=== PATIENT | male | born 1985 | race Caucasian/White ===

== ENCOUNTER 2022-04-07 19:00 | Emergency (ER) | payer BC, SELFPAY ==
--- NOTE | ~2022-04-07 | CT_ITS ---
EXAMINATION: CT brain wo con DATE: 04/07/2022 21:21 INDICATION: headache . TECHNIQUE: Computed tomography (CT) of the head was performed without intravenous contrast. The mA wa s adjusted according to patient size. Iterative reconstruction technique was employed. The dose-lengt h product was 681.00 mGy-cm. COMPARISON: 10/27/2017 FINDINGS: No acute intracranial hemorrhage or extra-axial fluid collection. No hydrocephalus, mass, or herniation. No acute ischemic infarct. Unremarkable dural venous sinus attenuation. No acute osseous abnormality. The aerated spaces are clear. Remote left mastoidectomy IMPRESSION: No acute intracranial process. Reviewed, dictated and finalized at location K.
--- NOTE | 2022-04-07 19:47 | ED.GENADULT ---
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 He is not currently receiving any of those medications. He is on disability due to needing to sleep 12-16 hours per day. Yesterday, he took one of his methylphenidate pills as he had to drive a child and did not want to fall asleep at the wheel. Over the past 2 days, he has had increasing confusion, feeling tired/weak which is worse than usual, along with not being able to remember events or conversations. He had an episode where he wondered off for some time while outside at his car. At 6:30 p.m. tonight, he has had headache. He did have 1 episode of double vision yesterday with that but that resolved. The headache is not worse with noise, movement, or lights. No neck or back pain. Related Data Home Medications Medication Instructions Recorded Confirmed clobetasol 0.05 % topical cream 1 applic topical DAILY 09/19/19 09/19/19 Allergies Allergy/AdvReac Type Severity Reaction Status Date / Time peanut Allergy Unknown THROAT Verified 04/07/22 20:08 SWELLING tree nut Allergy Unknown THROAT Verified 04/07/22 20:08 SWELLING cefaclor AdvReac Unknown Unknown Verified 04/07/22 20:08 codeine AdvReac Unknown Unknown Verified 04/07/22 20:08 Review of Systems Review of Systems: All systems reviewed & are unremarkable except as noted in HPI and below Constitutional: Constitutional: Reports no additional constitutional complaints, Denies anorexia, Denies body ache(s), Denies chills, Denies excessive sweating, Reports fatigue, Denies fever(s), Denies frequent falls, Reports headache(s), Reports malaise and Denies poor appetite Eyes: Eyes: Reports no additional eye complaints, Denies blurry vision, Reports change in vision (diplopia transient yesterday), Denies irritation, Denies itchy eyes and Denies photophobia ENT: Reports system reviewed and no additional complaints, except as documented, Reports Normal hearing present, Denies change in voice, Denies dysphagia, Denies vertigo, Reports dizziness, Denies ear discharge, Reports headache(s), Denies hearing loss, Denies hoarseness, Denies nasal congestion, Denies neck pain, Denies sinus pressure, Denies sore throat and Denies throat swelling Cardiovascular: Cardiovascular: Reports no additional cardiovascular complaints, Denies chest pain, Denies syncope, Denies rapid heart rate, Denies irregular heart rhythm, Denies leg edema, Denies dyspnea and Denies slow heart rate Respiratory: Respiratory: Reports no additional respiratory complaints, Denies cough, Denies dyspnea, Denies stridor and Denies wheezing Gastrointestinal: Gastrointestinal: Reports no additional gastrointestinal complaints, Denies abdominal pain, Denies melena, Denies hematochezia, Denies dysphagia, Denies diarrhea, Denies nausea and Denies vomiting Genitourinary: Genitourinary: Denies hematuria, Denies oliguria, Denies dysuria, Denies flank pain, Denies urinary frequency and Denies urinary urgency Musculoskeletal: Musculoskeletal: Reports no additional musculoskeletal complaints, Denies abnormal gait, Denies back pain, Denies myalgias, Denies arthralgias, Denies joint swelling, Denies limited range of motion, Denies muscle cramps, Denies muscle weakness, Denies neck pain and Denies numbness Integumentary/Breasts: Skin/Breast: Reports system reviewed and no additional complaints, except as docu, Denies breast pain, Denies change in pigmentation, Denies pruritus, Denies erythema and Denies wounds Neurologic: Reports system reviewed and no additional complaints, except as documented, Reports Normal hearing present, Denies Abnormal speech pre
[2022-04-07 20:03] VITALS: BP 126/92; PULSE 94; RESP 18; TEMP 36.6; O2SAT 96
[2022-04-07 21:55] LABS: Basophils Absolute Auto 0.07 K/mm3 (0.00-0.10); Basophils Percent Auto 0.8 % (0.0-1.0); Eosinophils Absolute Auto 0.66 K/mm3 (0.02-0.50); Eosinophils Percent Auto 7.4 % (1.0-6.0); Hematocrit 48.9 % (40.0-54.0); Hemoglobin 16.2 g/dL (14.0-18.0); Immature Granulocyte Absolute 0.03 K/mm3 (0.00-0.00); Immature Granulocyte Percent A 0.3 % (0.0-0.0); Lymphocytes Absolute Auto 2.36 K/mm3 (1.10-4.50); Lymphocytes Percent Auto 26.6 % (18.0-42.0); Mean Corpuscular HGB Conc 33.1 g/dL (32.0-36.0); Mean Corpuscular Hemoglobin 30.6 pg (27.0-31.0); Mean Corpuscular Volume 92.4 fL (78.0-102.0); Mean Platelet Volume 9.6 fl (8.7-11.0); Monocytes Absolute Auto 0.85 K/mm3 (0.10-0.90); Monocytes Percent Auto 9.6 % (2.0-11.0); Neutrophils Absolute Auto 4.9 K/mm3 (1.7-7.2); Neutrophils Percent Auto 55.3 % (50.0-70.0); Platelet Count Result 272 K/mm3 (150-420); Red Blood Count 5.29 M/mm3 (4.70-6.10); Red Cell Distribution Width 13.1 % (11.6-14.4); White Blood Count 8.9 K/mm3 (4.8-10.8)
[2022-04-07] MEDS: SODIUM CHLORIDE 0.9% IV 1,000 ML 999 ML IV CONT (21:58)
[2022-04-07] MEDS: KETOROLAC 30 MG/ML VIAL (*BKC) IV PUSH (21:58)
[2022-04-07 22:00] VITALS: BP 131/92; PULSE 72; RESP 16; O2SAT 96
[2022-04-07 22:10] LABS: Add Urine Microscopic? NO; Appearance Urine Clear (Clear); Bilirubin Urine Negative (Negative); Blood Urine Negative (Negative); Color Urine Yellow (Yellow); Glucose Urine UA Negative (Negative); Ketones Urine Negative (Negative); Leukocyte Esterase Ur Negative LEU/UL (Negative); Nitrate Urine Negative (Negative); Protein Urine Negative (Negative); Specific Grav Ur 1.015 (1.010-1.020); Urobilinogen Urine 0.2 mg/dL (0.2-1.0); pH Urine 6.5 (5.0-8.0)
[2022-04-07 22:17] LABS: Amphetamine Screen Urine Negative (Negative); Barbiturate Screen Urine Negative (Negative); Benzodiazepines Screen Urine Positive (Negative); Cannabinoid Screen Urine Positive (Negative); Cocaine Screen Urine Negative (Negative); Methadone Screen Urine Negative (Negative); Opiate Screen Urine Negative (Negative); Phencyclidine Screen Urine Negative (Negative)
[2022-04-07 22:20] LABS: Free T3 3.11 pg/mL (2.18-3.98)
[2022-04-07 22:39] LABS: Alanine Aminotransferase 152 U/L (16-63); Albumin Level 4.2 g/dL (3.4-5.0); Alkaline Phosphatase 54 U/L (46-116); Anion Gap 10 mmol/L (8-16); Aspartate Amino Transferase 81 U/L (15-37); Bilirubin,Total 0.6 mg/dL (0.00-1.00); Blood Urea Nitrogen 12 mg/dL (7-18); Calcium 9.1 mg/dL (8.5-10.1); Carbon Dioxide 30 mmol/L (21-32); Chloride 102 mmol/L (98-108); Estimated Glomerular Filt Rate > 60; Glucose 77 mg/dL (70-99); Magnesium 2.5 mg/dL (1.8-2.4); Osmolality Calculated 292 mOsm/kg (285-295); Potassium 3.8 mmol/L (3.5-5.1); Salicylate 0.5 mg/dL (2.8-20.0); Sodium 142 mmol/L (136-145); Thyroid Stimulating Hormone 0.86 uIU/mL (0.36-3.74); Total Protein 7.9 g/dL (6.4-8.2)
[2022-04-07 22:44] LABS: Acetaminophen < 2 ug/mL (10-30); Ethanol < 3 mg/dL (0-6)
[2022-04-07 23:05] VITALS: BP 137/82; BP 149/84; BP 150/84
== END 2022-04-07 23:21 | disposition home or self-care (01) ==
PROVIDERS: Emergency Provider Emergency Medicine; PCP Family Medicine
DX: R51.9 Headache, unspecified (principal); G47.419 Narcolepsy without cataplexy; R41.0 Disorientation, unspecified
CPT/HCPCS: 36415; 70450; 80053; 80307; 81003; 83735; 84439; 84443; 84481; 85025; 96361; 96374; 99284; J1885; J7030

== ENCOUNTER 2022-06-22 15:57 | Emergency (ER) | payer BC, SELFPAY ==
[2022-06-22 16:00] VITALS: BP 132/91; PULSE 93; RESP 20; TEMP 36.6; O2SAT 97
[2022-06-22] MEDS: diphenhydrAMINE HCl INJ 50 MG/ML VIAL IV PUSH (16:36)
[2022-06-22] MEDS: LORATADINE 10 MG TABLET PO (16:36)
[2022-06-22] MEDS: methylPREDNISolone SOD SUCC 125 MG VIAL IV PUSH (16:38)
--- NOTE | 2022-06-22 17:07 | ED.GENADULT ---
HPI - General Adult General Chief complaint: Allergic Reaction Stated complaint: allergic reaction; eyes swollen; itchiness Time Seen by Provider: 06/22/22 16:17 History of Present Illness HPI narrative: 36-year-old male who was working in his house, picking up some dust the items were by he rubbed his face with his hands, resulting in swelling of the right and left periorbital regions, worse on the right, with itching and tearing. He also scratched his right side of his neck and this has resulted in hives. He does have history of eosinophilic esophagitis and atopic dermatitis with multiple allergies as well as asthma. No dyspnea. No swelling of the tongue or throat. No other areas of swelling besides the periorbital regions and the right aspect of his neck. Related Data Home Medications Medication Instructions Recorded Confirmed clobetasol 0.05 % topical cream 1 applic topical DAILY 09/19/19 06/22/22 Allergies Allergy/AdvReac Type Severity Reaction Status Date / Time peanut Allergy Unknown THROAT Verified 04/07/22 20:08 SWELLING tree nut Allergy Unknown THROAT Verified 04/07/22 20:08 SWELLING cefaclor AdvReac Unknown Unknown Verified 04/07/22 20:08 codeine AdvReac Unknown Unknown Verified 04/07/22 20:08 Review of Systems Review of Systems: All systems reviewed & are unremarkable except as noted in HPI and below Constitutional: Constitutional: Reports no additional constitutional complaints, Denies anorexia, Denies body ache(s), Denies chills, Denies excessive sweating, Denies fatigue, Denies fever(s), Denies frequent falls, Denies headache(s), Denies malaise and Denies poor appetite Eyes: Eyes: Reports no additional eye complaints, Denies blurry vision, Denies change in vision, Reports irritation, Reports itchy eyes and Reports photophobia Comments: Periorbital edema bilaterally, worse on the right. ENT: Reports system reviewed and no additional complaints, except as documented, Reports Normal hearing present, Denies change in voice, Denies dysphagia, Denies vertigo, Denies dizziness, Denies ear discharge, Denies headache(s), Denies hearing loss, Denies hoarseness, Denies nasal congestion, Denies neck pain, Denies sinus pressure, Denies sore throat and Denies throat swelling Cardiovascular: Cardiovascular: Reports no additional cardiovascular complaints, Denies chest pain, Denies syncope, Denies rapid heart rate, Denies irregular heart rhythm, Denies leg edema, Denies dyspnea and Denies slow heart rate Respiratory: Respiratory: Reports no additional respiratory complaints, Denies cough, Denies dyspnea, Denies stridor and Denies wheezing Gastrointestinal: Gastrointestinal: Reports no additional gastrointestinal complaints, Denies abdominal pain, Denies melena, Denies hematochezia, Denies dysphagia, Denies diarrhea, Denies nausea and Denies vomiting Genitourinary: Genitourinary: Denies hematuria, Denies oliguria, Denies dysuria, Denies flank pain, Denies urinary frequency and Denies urinary urgency Musculoskeletal: Musculoskeletal: Reports no additional musculoskeletal complaints, Denies abnormal gait, Denies back pain, Denies myalgias, Denies arthralgias, Denies joint swelling, Denies limited range of motion, Denies muscle cramps, Denies muscle weakness, Denies neck pain and Denies numbness Integumentary/Breasts: Skin/Breast: Reports system reviewed and no additional complaints, except as docu, Denies breast pain, Denies change in pigmentation, Denies pruritus, Denies erythema and Denies wounds Neurologic: Reports system reviewed and no additional complaints, except as documented, Reports Normal hearing present, Denies Abnormal speech present, Denies abnormal gait, Denies confusion, Denies vertigo, Denies dizziness, Denies syncope, Denies frequent falls, Denies headache(s), Denies focal weakness, Denies numbness and Denies paresthesias Psychiatric: Psychiatric: Reports no additional psychiatric complaints and Denies
--- NOTE | 2022-06-22 17:18 | PC.NURSE ---
noted redness to forehead has decreased and swelling to face has decreased. pt states feeling better. dr danielson updated.
[2022-06-22 17:59] VITALS: BP 112/77; PULSE 73; RESP 20; TEMP 36.6; O2SAT 97
== END 2022-06-22 18:09 | disposition home or self-care (01) ==
PROVIDERS: Emergency Provider Emergency Medicine; PCP Family Medicine
DX: T78.40XA Allergy, unspecified, initial encounter (principal); L30.9 Dermatitis, unspecified; H10.9 Unspecified conjunctivitis
CPT/HCPCS: 96374; 96375; 99284; A9270; J1200; J2930

== ENCOUNTER 2024-05-18 12:17 | Outpatient (CLI) | payer OTHER, SELFPAY ==
--- NOTE | 2024-05-18 14:15 | NEURO_ITS ---
Impression: # Complains of tingling in neck and shoulder area. # Normal Nerve Conduction Study. # Normal needle/EMG exam. # Clinical correlation recommended; Would benefit from MRI of C-spine. Nerve Conduction Studies Anti Sensory Summary Table Stim Site NR Peak (ms) P-T Amp (?V) Site1 Site2 Delta-P (ms) Dist (cm) Kyaw (m/s) Left Median Anti Sensory (2-3nd Digit) Wrist 2.7 64.3 Wrist 2-3nd Digit 2.7 14.0 52 Wrist 2.6 75.5 Wrist 2-3nd Digit 2.7 14.0 52 Right Median Anti Sensory (2-3nd Digit) Wrist 2.6 67.2 Wrist 2-3nd Digit 2.6 14.0 54 Wrist 2.6 77.0 Wrist 2-3nd Digit 2.6 14.0 54 Left Radial Anti Sensory (Base 1st Digit) Wrist 2.1 24.6 Wrist Base 1st Digit 2.1 0.0 Right Radial Anti Sensory (Base 1st Digit) Wrist 2.1 27.6 Wrist Base 1st Digit 2.1 0.0 Left Ulnar Anti Sensory (5th Digit) Wrist 2.4 66.9 Wrist 5th Digit 2.4 14.0 58 Right Ulnar Anti Sensory (5th Digit) Wrist 2.3 72.9 Wrist 5th Digit 2.3 14.0 61 Motor Summary Table Stim Site NR Onset (ms) O-P Amp (mV) Site1 Site2 Delta-0 (ms) Dist (cm) Kyaw (m/s) Left Median Motor (Abd Poll Brev) Wrist 2.4 4.4 Elbow Wrist 4.9 29.0 59 Elbow 7.3 4.2 Right Median Motor (Abd Poll Brev) Wrist 2.9 2.2 Elbow Wrist 4.8 29.0 60 Elbow 7.7 3.6 Left Ulnar Motor (Abd Dig Minimi) Wrist 2.3 7.4 A Elbow Wrist 5.0 30.0 60 A Elbow 7.3 6.7 Right Ulnar Motor (Abd Dig Minimi) Wrist 2.0 7.8 A Elbow Wrist 5.1 30.0 59 A Elbow 7.1 7.6 F Wave Studies NR F-Lat (ms) L-R F-Lat (ms) Left Median (Mrkrs) (Abd Poll Brev) 26.88 0.29 Right Median (Mrkrs) (Abd Poll Brev) 27.17 0.29 Left Ulnar (Mrkrs) (Abd Dig Min) 27.79 0.68 Right Ulnar (Mrkrs) (Abd Dig Min) 27.11 0.68 EMG Side Muscle Nerve Root Ins Act Fibs Amp Dur Recrt Comment Right 1stDorInt Ulnar C8-T1 Nml Nml Nml Nml Nml Right Ext Indicis Radial (Post Int) C7-8 Nml Nml Nml Nml Nml Right Ext Digitorum Radial (Post Int) C7-8 Nml Nml Nml Nml Nml Right BrachioRad Radial C5-6 Nml Nml Nml Nml Nml Right PronatorTeres Median C6-7 Nml Nml Nml Nml Nml Right Abd Poll Brev Median C8-T1 Nml Nml Nml Nml Nml Right ABD Dig Min Ulnar C8-T1 Nml Nml Nml Nml Nml Left 1stDorInt Ulnar C8-T1 Nml Nml Nml Nml Nml Left Ext Indicis Radial (Post Int) C7-8 Nml Nml Nml Nml Nml Left Ext Digitorum Radial (Post Int) C7-8 Nml Nml Nml Nml Nml Left BrachioRad Radial C5-6 Nml Nml Nml Nml Nml Left PronatorTeres Median C6-7 Nml Nml Nml Nml Nml Left Abd Poll Brev Median C8-T1 Nml Nml Nml Nml Nml Left ABD Dig Min Ulnar C8-T1 Nml Nml Nml Nml Nml MTDD
== END 2024-05-18 12:18 | disposition home or self-care (01) ==
LOC: ANHNEURO 12:19
PROVIDERS: PCP Family Medicine; Visit Provider Student in an Organized Health Care Education/Training Program
DX: M54.12 Radiculopathy, cervical region (principal); R20.2 Paresthesia of skin
CPT/HCPCS: 95886; 95911

== ENCOUNTER 2024-08-22 19:33 | Emergency (ER) | payer OTHER, SELFPAY ==
[2024-08-22 19:36] VITALS: BP 142/87; PULSE 85; RESP 20; TEMP 36.7; O2SAT 100
--- NOTE | 2024-08-22 19:41 | ECG_ITS ---
Test Date: 2024-08-22 19:45:16 Measurements Intervals [place] Rate: 78 P: 35 MN: 140 QRS: 4 QRSD: 113 T: 26 QT: 355 QTc: 405 Interpretive Statements SINUS RHYTHM INCOMPLETE RIGHT BUNDLE BRANCH BLOCK [90+ ms QRS DURATION, TERMINAL R IN V1/V2, 40+ ms S IN I/aVL/V4/V5/V6] No previous ECG available for comparison Electronically Signed On 08-22-2024 21:04:41 [employer] by Livia Barry M.D.
[2024-08-22 19:57] LABS: Basophils Absolute Auto 0.1 K/mm3 (0.0-0.1); Basophils Percent Auto 0.6 % (0.2-1.2); Eosinophils Absolute Auto 0.2 K/mm3 (0-0.3); Eosinophils Percent Auto 2.2 % (0-4.4); Hematocrit 45.9 % (42.0-52.0); Hemoglobin 15.8 g/dL (14.0-18.0); Immature Granulocyte Absolute 0.03 K/mm3 (0.00-0.031); Immature Granulocyte Percent A 0.3 % (0-0.5); Lymphocytes Absolute Auto 2.51 K/mm3 (0.9-3.2); Lymphocytes Percent Auto 25.8 % (18.3-44.2); Mean Corpuscular HGB Conc 34.4 g/dl (32-36); Mean Platelet Volume 9.5 fl (7.4-10.4); Monocytes Absolute Auto 0.8 K/mm3 (0.1-0.6); Monocytes Percent Auto 7.9 % (2.6-8.5); Neutrophils Absolute Auto 6.2 K/mm3 (1.3-6.7); Neutrophils Percent Auto 63.2 % (45.5-73.1); Platelet Count Result 280 k/mm3 (150-375); Red Cell Distribution Width 12.5 % (11.5-14.5); White Blood Count 9.7 K/mm3 (4.5-10.0)
[2024-08-22 20:05] LABS: Alanine Aminotransferase 37 U/L (6-50); Albumin Level 4.8 g/dL (3.5-5.1); Alkaline Phosphatase 64 U/L (38-126); Anion Gap 8 mmol/L (4-12); Aspartate Amino Transferase 28 U/L (17-59); Bilirubin,Total 0.6 mg/dL (0.2-1.3); Blood Urea Nitrogen 11 mg/dL (9-20); Calcium 9.5 mg/dL (8.4-10.2); Carbon Dioxide 27 mmol/L (22-30); Chloride 105 mmol/L (98-107); Estimated CRCL calculation 86 ml/min; Estimated Glomerular Filt Rate > 60; Glucose 95 mg/dL (65-110); Potassium 4.1 mmol/L (3.4-5.0); Sodium 140 mmol/L (137-145)
[2024-08-22 20:13] LABS: Acetaminophen < 10 ug/mL (10-30); Ethanol < 10 mg/dL (<10); Salicylate 3.8 mg/dL (2-20)
[2024-08-22 20:15] LABS: Amphetamine Screen Urine Negative (Negative); Barbiturate Screen Urine Negative (Negative); Benzodiazepines Screen Urine Negative (Negative); Cannabinoid Screen Urine Positive (Negative); Cocaine Screen Urine Negative (Negative); Methadone Screen Urine Negative (Negative); Opiate Screen Urine Negative (Negative); Phencyclidine Screen Urine Negative (Negative)
[2024-08-22 20:20] LABS: Add Urine Microscopic? YES; Appearance Urine Clear (Clear); Bacteria Urine None Seen /hpf; Bilirubin Urine Negative (Negative); Blood Urine Negative (Negative); Color Urine Yellow (Yellow); Glucose Urine UA Negative (Negative); Ketones Urine Negative (Negative); Leukocyte Esterase Ur Negative LEU/UL (Negative); Nitrate Urine Negative (Negative); Non Pathogenic Casts 0-2; Protein Urine Trace mg/dL (Negative); RBC Urine 0-2 /hpf (0-2); Specific Grav Ur 1.026 (1.001-1.035); Squamous Epithelial Cell Urine None Seen /hpf (Few); Urobilinogen Urine 0.2 mg/dL (<2.0); WBC Urine 0-5 /hpf (0-3)
[2024-08-22 20:33] LABS: SARS-CoV-2 RNA PCR Negative (Negative)
[2024-08-22 21:00] LABS: Creatine Kinase 31 U/L (55-170)
[2024-08-22 21:06] VITALS: O2SAT 100
--- NOTE | 2024-08-22 21:25 | ED_ITS ---
HPI - General Adult General Chief complaint: Overdose Stated complaint: serotinin poisioning Time Seen by Provider: 08/22/24 20:26 History of Present Illness HPI narrative: Patient is a 38-year-old male who presents to the emergency department this evening due to concern for serotonin syndrome. Patient states that he has been on BuSpar 40 mg for many years and recently his PCP started him on trazodone and he believes that the PCP did tell him to stop taking the BuSpar. Patient states that he has been on the trazodone for 4 days and for got stop taking the BuSpar. He is complaining of multiple vague symptoms including weakness, palpitations, nausea, vomiting and diarrhea and is concerned that this could be signs of serotonin syndrome. Patient is also aware that starting the trazodone could also have side effects and is unsure if the symptoms he is feeling are from a viral syndrome, trazodone or serotonin syndrome. He is alert and oriented to person, place, time and situation and answering all of my questions appropriately. No additional symptoms or concerns at this time. Related Data Allergies Allergy/AdvReac Type Severity Reaction Status Date / Time peanut Allergy Unknown THROAT Verified 07/26/24 15:30 SWELLING tree nut Allergy Unknown THROAT Verified 07/26/24 15:30 SWELLING cefaclor AdvReac Unknown Unknown Verified 07/26/24 15:30 Review of Systems 2 Review of Systems: All systems are reviewed and are negative unless stated otherwise in the HPI. FORMERLY [facility], [facility] Past Medical History Medical History Right kidney stone Eosinophilic esophagitis Food allergy, peanut Allergic rhinitis Anxiety Gastroesophageal reflux disease Hypersomnolence Mild intermittent asthma without complication Recurrent major depressive disorder, in partial remission Family History Family History Other Diabetes mellitus Family history of allergic disorder Family history of arthritis Hypertension Social History Social History Smoking status: Never smoker Second hand tobacco smoke exposure: No Alcohol intake: current Alcohol use details: seldom; socially Substance use: current Substance use type: marijuana Exam 2 Narrative: General: Alert, awake, afebrile, in no acute distress. HEENT: PERRL, no rhinorrhea, no post nasal drip, oropharynx clear. Neck: Trachea midline, no JVD, no lymphadenopathy. Cardiovascular: Regular rate and rhythm, no murmurs, rubs or gallops, no peripheral edema. Respiratory: Clear to auscultation bilaterally, no tachypnea, no wheezing, no rhonchi, no rubs, no respiratory distress. Abdomen: Soft, nontender, nondistended, no rebound, no guarding, no peritoneal signs. Musculoskeletal: No joint swelling or deformity, normal muscle tone, compartments are all soft, no muscle rigidity, no clonus. Skin: No rashes or petechia, no signs of infection. Psychiatric: Alert and oriented, normal behavior and judgment for situation. Neurological: Alert and oriented to person, place, and time. Follows all commands. No focal deficits, speech is clear and fluent. Course Vital Signs Vital signs: Vital Signs Temperature 98.1 F 08/22/24 19:36 Pulse Rate 85 08/22/24 19:36 Respiratory Rate 20 08/22/24 19:36 Blood Pressure 142/87 H 08/22/24 19:36 Pulse Oximetry 100 08/22/24 19:36 Temperature 98.1 F 08/22/24 19:36 Pulse Rate 85 08/22/24 19:36 Respiratory Rate 20 08/22/24 19:36 Blood Pressure 142/87 H 08/22/24 19:36 Pulse Oximetry 100 08/22/24 19:36 Medical Decision Making MDM Narrative Medical decision making narrative: The patient was evaluated by myself in the emergency department. History is obtained from patient who is an independent historian and physical exam was performed. External medical records were reviewed at this time. IV was established and pertinent tests were ordered. EKG was obtained which revealed sinus rhythm rate of 70 beats per minute. No ST changes, T wave inversions or evidence of acute ischemia. EKG was independently interpreted by me and is currently pending official cardiology read. Laboratory results obtained revealing no acute process. Urinalysis unremarkable. Urine drug screen positive for cannabinoids. Differential diagnosis considerations include Serotonin syndrome, acute viral syndrome, medication side effect, infection process. Comorbidities impacting this visit include multiple SSRI use. I have evaluated and discussed social determinants of health with the patient that could potentially impact subsequent diagnosis and treatment plans. On repeat assessment of the patient, reevaluation revealed that the patient is doing well and is in no acute distress. Patient symptoms have Remained stable since he arrived to our emergency department. Repeat vital signs were all reviewed and noted to be stable. Differential diagnosis and treatment plan were discussed with the patient at bedside. Patient agrees with discussion and after shared medical decision making agrees with discharge. All questions were answered to the patient's satisfaction. Patient will follow up with his PCP in 3-5 days. He was informed that his symptoms are likely due to a side effect of starting the trazodone or a viral syndrome, my suspicion for serotonin syndrome is very low given his normal vital signs and normal examination. Instructed to call his doctor 1st thing tomorrow to find out if he was supposed to stop taking the abuse bar and patient is agreeable with this plan. Patient was provided with strict return precautions and instructed to return to the emergency department if any new or worsening symptoms develop. The patient was discharged in stable condition. Vital Signs Vital Signs: Vital Signs Temperature 98.1 F 08/22/24 19:36 Pulse Rate 85 08/22/24 19:36 Respiratory Rate 20 08/22/24 19:36 Blood Pressure 142/87 H 08/22/24 19:36 Pulse Oximetry 100 08/22/24 19:36 Temperature 98.1 F 08/22/24 19:36 Pulse Rate 85 08/22/24 19:36 Respiratory Rate 20 08/22/24 19:36 Blood Pressure 142/87 H 08/22/24 19:36 Pulse Oximetry 100 08/22/24 19:36 Lab Data 08/22/24 19:46 08/22/24 19:46 Labs: Lab Results 08/22/24 08/22/24 Range/Units 19:46 19:51 WBC 9.7 (4.5-10.0) K/mm3 RBC 5.10 (4.6-6.20) M/mm3 Hgb 15.8 (14.0-18.0) g/dL Hct 45.9 (42.0-52.0) % MCV 90.0 (80-100) fl MCH 31.0 (26-34) pg MCHC 34.4 (32-36) g/dl RDW 12.5 (11.5-14.5) % Plt Count 280 (150-375) k/mm3 MPV 9.5 (7.4-10.4) fl Immature Gran % (Auto) 0.3 (0-0.5) % Neut % (Auto) 63.2 (45.5-73.1) % Lymph % (Auto) 25.8 (18.3-44.2) % Wallace % (Auto) 7.9 (2.6-8.5) % Eos % (Auto) 2.2 (0-4.4) % Baso % (Auto) 0.6 (0.2-1.2) % Lymph # (Auto) 2.51 (0.9-3.2) K/mm3 Wallace # (Auto) 0.8 H (0.1-0.6) K/mm3 Eos # (Auto) 0.2 (0-0.3) K/mm3 Baso # (Auto) 0.1 (0.0-0.1) K/mm3 Abs Immat Gran (auto) 0.03 (0.00-0.031) K/mm3 Absolute Neuts (auto) 6.2 (1.3-6.7) K/mm3 Absolute Nucleated RBC 0.000 (0.0-0.012) K/mm3 Nucleated RBC % 0.0 (0.0-0.2) % Sodium 140 (137-145) mmol/L Potassium 4.1 (3.4-5.0) mmol/L Chloride 105 (98-107) mmol/L Carbon Dioxide 27 (22-30) mmol/L Anion Gap 8 (4-12) mmol/L BUN 11 (9-20) mg/dL Creatinine 1.20 (0.7-1.3) mg/dL Estim Creat Clear Calc 86 ml/min Estimated GFR > 60 (59 - ) Glucose 95 (65-110) mg/dL Calcium 9.5 (8.4-10.2) mg/dL Total Bilirubin 0.6 (0.2-1.3) mg/dL AST 28 (17-59) U/L ALT 37 (6-50) U/L Alkaline Phosphatase 64 (38-126) U/L Total Creatine Kinase 31 L (55-170) U/L Total Protein 8.0 (6.3-8.2) g/dL Albumin 4.8 (3.5-5.1) g/dL TSH 3.310 (0.465-4.680) uIU/mL Urine Color Yellow (Yellow) Urine Appearance Clear (Clear) Urine pH 7.0 (5.0-9.0) Ur Specific [place] 1.026 (1.001-1.035) Urine Protein Trace (Negative) mg/dL Urine Glucose (UA) Negative (Negative) mg/dL Urine Ketones Negative (Negative) mg/dL Ur Blood (Man) Negative (Negative) Urine Nitrate Negative (Negative) Urine Bilirubin Negative (Negative) Urine Urobilinogen 0.2 (<2.0) mg/dL Leukocyte Esterase Rfl Negative (Negative) DANIELLE/UL Urine RBC 0-2 (0-2) /hpf Urine WBC 0-5 (0-3) /hpf Ur Squamous Epith Cells None seen (Few) /hpf Urine Bacteria None seen /hpf Urine Casts 0-2 Salicylates 3.8 (2-20) mg/dL Urine Opiates Screen Negative (Negative) Urine Methadone Screen Negative (Negative) Acetaminophen < 10 L (10-30) ug/mL Ur Barbiturates Screen Negative (Negative) Ur Phencyclidine Scrn Negative (Negative) Ur Amphetamine Screen Negative (Negative) U Benzodiazepines Scrn Negative (Negative) Urine Cocaine Screen Negative (Negative) U Cannabinoids Screen Positive A (Negative) Ethyl Alcohol < 10 (<10) mg/dL SARS-CoV-2 RNA (RT-PCR) Negative (Negative) Discharge Plan Discharge Clinical Impression: Medication side effect Patient Disposition: Home, Self-Care Condition: Improved Instructions: Antibiotic Form Additional Instructions: Please follow-up with your family doctor within the next 3-5 days. Return to the emergency department if any new or worsening symptoms develop. Patient Language: Romanian Prescriptions: No Action loratadine [Claritin] 10 mg tablet 10 mg PO DAILY Qty: 7 0RF diphenhydramine HCl [Benadryl Allergy] 25 mg tablet 25 mg PO TID PRN (Reason: allergic reaction) Qty: 20 0RF ondansetron 4 mg tablet,disintegrating 4 mg PO Q8H PRN (Reason: nausea and vomiting) Qty: 10 0RF baclofen 10 mg tablet 10 mg PO DAILY PRN (Reason: muscle spasm) Qty: 30 0RF epinephrine [EpiPen 2-Toro] 0.3 mg/0.3 mL auto-injector 0.3 mg IM ONCE Qty: 6 3RF Rx Instructions: as a single dose bupropion HCl 150 mg tablet extended release 24 hr See Rx Instructions .ROUTE .COMPLEX Qty: 90 4RF Dose Instruction: TAKE 1 TABLET DAILY Rx Instructions: TAKE 1 TABLET DAILY buspirone 5 mg tablet See Rx Instructions .ROUTE .COMPLEX Qty: 360 3RF Dose Instruction: TAKE 1 TO 2 TABLETS TWICE A DAY NEEDED Rx Instructions: TAKE 1 TO 2 TABLETS TWICE A DAY NEEDED metoprolol succinate 25 mg tablet extended release 24 hr 25 mg PO DAILY Qty: 90 1RF fluticasone propion-salmeterol [Advair Diskus] 250-50 mcg/dose blister with device 1 inh INHALATION BID Qty: 60 9RF clobetasol 0.05 % ointment 1 applic topical BID Qty: 60 2RF armodafinil [Nuvigil] 250 mg tablet 250 mg PO QAM Qty: 90 1RF pantoprazole 40 mg tablet,delayed release (DR/EC) 40 mg PO QAM Qty: 90 3RF albuterol sulfate 90 mcg/actuation HFA aerosol inhaler 1 inh inhalation Q4H PRN (Reason: shortness of breath or wheezing) Qty: 8.5 6RF Follow-up/Referrals: Monica Marshall MD [Primary Care Provider] - 3 Days Time of Disposition: 21:37
[2024-08-22 21:57] VITALS: RESP 15
[2024-08-22 21:58] VITALS: BP 132/86; PULSE 66; RESP 15; O2SAT 100
== END 2024-08-22 22:00 | disposition home or self-care (01) ==
PROVIDERS: Emergency Provider Emergency Medicine; PCP Family Medicine
DX: R11.2 Nausea with vomiting, unspecified (principal); T43.215A Adverse effect of selective serotonin and norepinephrine reuptake inhibitors, initial encounter; Z20.822 Contact with and (suspected) exposure to COVID-19; Z87.442 Personal history of urinary calculi; Z91.010 Allergy to peanuts; F41.9 Anxiety disorder, unspecified; K21.9 Gastro-esophageal reflux disease without esophagitis; J45.909 Unspecified asthma, uncomplicated; F32.A Depression, unspecified; I45.10 Unspecified right bundle-branch block
CPT/HCPCS: 36415; 80053; 80143; 80179; 80307; 81001; 82077; 82550; 84443; 85025; 87635; 93005; 99283

== ENCOUNTER 2025-01-31 13:31 | Outpatient (CLI) | payer MEDICARE, SELFPAY ==
--- OUTSIDE RECORDS SUMMARY | 2025-01-31 13:48 | XMS_ITS | Patient Health Record ---
Author Organization [facility] Address [address] [place] [address] Care Team Providers Care Laborer Plumbing Name Role Phone Monica Marshall MD Primary Care Provider Unavailabl e Allergies Allergen (clinical drug ingredient) Drug/Non Drug Allergy documented on EMR Reaction Allergy Type Onset Date Status cefaclor Cefaclor Unknown Drug Allergy Active Codeine Phosphate Unknown Drug Allergy Active Reason For Referral No Information Medications Medication SIG (Take, Route, Frequency, Duration) Notes Start Date End Date Status Wellbutrin XL Active Methylphenidate Acti ve Metoprolol Succinate Active Advair HFA Active Pantoprazole Sodium 40 MG 1 tablet Orall y Once a day for 30 day(s) Active Dexilant 60 MG 1 capsule Orally Onc e a day for 30 day(s) 07/19/2021 Active Xyrem Active Albuterol Active Armodafinil Active Fluticasone Furoate 200 MCG/ACT 1 puff Swallowed not inhaled BID for 30 days 03/02/2021 Active Social History Tobacco Use: Social History Observation Description Date Details (start date - stop date) Never Smoker NA - NA Tobacco Use/Smoking Question Answer Notes Are you a nonsmoker Problems Problem Type SNOMED Code ICD Code Onset Dates Problem Status W/U Status Risk Notes Problem 826547812 Eosinophilic esophagitis (K20.0) Active confirmed He is somewhat improved with the addition swallowed steroids. I am changing his protonix to dexilant today. I gave him a month of samples. He can continue to swallow the advair he takes for his asthma. May need to add budesonide in the future Problem 435859821 GERD (gastroesophage al reflux disease) (K21.9) Active confirmed Will monitor symptoms with change to dexilant. Problem [id number] Dysphagia (R13.10) Active confirmed My suspicion is that he may have underlying EOE. Other possibilities include stricture vs. anatomic abnormality vs. motility disorder. He agreed to proceed with EGD and dilation (if necessary). Plan Of Treatment Pending Test Test Name Order Date Upper Endoscopy 02/22/2021 Insurance Providers Payer Name Payer Address Payer Phone Subscriber Number Group Number Insured Name Patient Relationship to Insured Coverage Start Date Coverage End Date [employer] PPO E2 [address] [place] [address] [id number] Ezra Hooker Self - patient is the insured Medical (General) History Medical History History ICD Code GERD Asthma Depression Sleep Apnea Narcolepsy Surgical History Surgery Date(Month/Year) Endoscopy 01/2021 Cholecystectomy Throat Surgery x2 Ear Surgery x3 Hospitalization History Reason Date(Month/Year) Panic Attack
--- OUTSIDE RECORDS SUMMARY | 2025-01-31 13:48 | XMS_ITS | Referral Summary ---
Author Organization [facility] Healthcare Address [address] [place] [address] Care Team Providers Care Metal Moulder'S Assistant Name Role Phone Monica Marshall MD Primary Care Provider [phone] Monica Marshall MD Unavailable [phone] Tip Giraldo MD Unavailable [phone] Francisco Sanchez MD Unavailable [phone] Encounters Date Type Department Care Team Description 01/11/[address] [facility] Neuro Sleep [address] [place] [address] Bobbi Salgado, RN [facility] patient assistance 01/10/[address] [facility] Neuro Sleep [address] [place] [address] Bobbi Salgado, MARI 01/07/[address] [facility] Neuro Sleep [address] [place] [address] Bobbi Salgado, RN 01/07/[address] [facility] General Neurology [address] [place] [phone] Brennan Mckenna MD Modafinil PA 01/06/2025 4:30 PM CDT Office Visit [facility] Neuro Sleep [address] [place] [address] Brennan Mckenna MD Excessive daytime sleepiness (Primary Dx); AQUILES (obstructive sleep apnea); Narcolepsy without cataplexy(347.00); Heart palpitations from Last 3 Months Allergies Active Allergy Reactions Criticality Noted Date Comments Cefaclor Codeine Peanut Itching,Swelling Medium 01/04/2023 Tree Nuts Other (See comments) Low Medications pantoprazole DR (PROTONIX) 40 mg EC tabletIndicatio ns:Treatment of Non-Bleeding Gastric Disorder Take 1 tablet (40 mg total) by mouth daily 2 Active buPROPion XL (WELLBUTRIN XL) 300 mg 24 hr tablet Take 1 tablet (300 mg total) by mouth daily Active busPIRone (BUSPAR) 5 mg tablet 3 Active Advair Diskus 250-50 mcg/dose diskus inhaler 3 Active solriamfetoL (Sunosi) 75 mg tabletIndicatio ns:Idiopathic hypersomnia TAKE 1 TABLET BY MOUTH EVERY DAY IN THE MORNING 30 tablet 3 5 Active traZODone (DESYREL) 100 mg tablet Take 1 tablet (100 mg total) by mouth nightly 5 Active levomefolate-al gal oil (Deplin, algal oil,) 15-90.314 mg capsule Take by mouth Active lamoTRIgine (LaMICtal) 100 mg tablet Take 1 tablet (100 mg total) by mouth daily 5 Active modafiniL (PROVIGIL) 100 mg tablet Take 2 tablets (200 mg total) by mouth daily 30 tablet 5 5 Active armodafiniL (NUVIGIL) 250 mg tablet Take 1 tablet (250 mg total) by mouth daily 30 tablet 5 5 025 Discontinued Active Problems Problem Noted Date Diagnosed Date Heart palpitations 01/06/2025 Narcolepsy without cataplexy(347.00) 03/14/2023 Dysphagia 01/04/2023 01/04/2023 Eosinophilic esophagitis 01/04/2023 023 Esophageal obstruction due to food impaction Anxiety disorder 04/27/2018 Obstructive sleep apnea syndrome in adult 2017 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 Gastroesophageal reflux disease 07/15/2017 Hypersomnia 07/15/2017 Eczema 07/15/2017 01/04/2023 Mild intermittent asthma without complication Excessive daytime sleepiness 07/23/201601/2023 SOB (shortness of breath) 07/23/20162022 Atopic rhinitis 01/15/2014 Overview (12/05/2016): ALLERGIC RHINITIS NOS Asthma 01/15/2014 Overview (12/06/2016): ASTHMA NOS Social History Tobacco Use Types Packs/Day Years Used Date Smoking Tobacco: Never Smokeless Tobacco: Never Tobacco Cessation:Counseling Given: Not Answered Alcohol Use Standard Drinks/Week Comments Yes 0 (1 standard drink = 0.6 oz pur e alcohol) Personal Safety Answer Date Recorded Getting School Help Needed Denies 08/27 Sex and Gender Information Value Date Recorded Sex Assigned at Not on file Legal Sex Male 2:30 PM CDT Gender Identity Not on file Sexual Orientation Straight 01/18/2020 6: 31 PM CDT Last Filed Vital Signs Vital Sign Reading Time Taken Comments Blood Pressure 118/75 01/06/2025 4:28 PM CDT Pulse 72 01/06/2025 4:28 PM CDT Temperature 37.1 C (98.8 F) 01/06/2025 4:28 PM CDT Respiratory Rate 15 01/04/2023 2:55 PM CDT Oxygen Saturation 96% 01/06/2025 4:28 PM CDT Inhaled Oxygen Concentration - - Weight 87.5 kg (193 lb) 01/06/2025 4:28 PM CDT Height 175.3 cm (5' 9) 01/06/2025 4:28 PM CDT Body Mass Index 28.5 01/06/2025 4:28 PM CDT Plan of Treatment Not on file Insurance [facility] MEDICARE ADVANTAGE Advance Directives For more information, please contact: [phone] * Full Code (Latest Code Status on File) Date Activated Date Inactivated Comments 04/26/2022 10:45 AM 04/26/2022 6:34 PM * Full Code Date Activated Date Inactivated Comments 04/26/2022 1:37 AM 04/26/2022 10:45 AM Care Teams Metal Moulder'S Assistant Relationship Specialty Start Date End Date Monica Marshall MD PCP - General 10/23/17 Monica Marshall MD 10/23/17 Tip Giraldo MD [address] [place] [address] 05/28/17 Francisco Sanchez MD [address] [place] [address] Consulting Physician Gastroenterology 04/26/22
--- OUTSIDE RECORDS SUMMARY | 2025-01-31 13:48 | XMS_ITS | Clinical Summary ---
Author Organization [facility] Address [address] [facility] [facility] [place] [address] Phone Care Team Providers Care Dock Operator Name Role Phone Monica Marshall MD Primary Care Provider [phone] Allergies Active Allergy Reactions Criticality Noted Date Comments Cefaclor Unknown 06/25/2016 Codeine Unknown 06/25/2016 Medications fluticasone-sa lmeterol (ADVAIR) 250-50 MCG/DOSE AEROSOL POWDER, BREATH ACTIVATED take 1 Puff by inhalation 2 times daily. Active EPINEPHRINE HCL, ANAPHYLAXIS, IM by Intramuscular route as needed. Active albuterol (PROVENTIL, VENTOLIN) (2.5 MG/3ML) 0.083% Nebulizer Soln 2.5 mg by Nebulization route. Active pantoprazole (PROTONIX) 40 MG Tablet Delayed Response Take 40 mg by mouth daily. Active clobetasol (TEMOVATE) 0.05 % Ointment Apply 2 times daily. Active armodafinil (NUVIGIL) 250 MG Tablet Take 150 mg by mouth every morning. Active buPROPion (WELLBUTRIN) 150 MG XL tablet Take 150 mg by mouth every morning. Active Methylphenidat e HCl 20 MG CAPSULE SR 24 HR Take 1 Cap by mouth every morning. 30 Cap 0 6 Active buPROPion (WELLBUTRIN) 300 MG TABLET SR 24 HR XL tablet 7 Active Active Problems Problem Noted Date Diagnosed Date Excessive daytime sleepiness 07/23/2016 Mild intermittent asthma without complication SOB (shortness of breath) 07/23/2016 Immunizations Immunization Administration Dates Next Due Influenza Vaccine greater than 3 yrs 07/09/2016 Family History Medical History Relation Name Comments Depression Father Hypertension Father Other-comment Father sleep apnea No Known Problems Maternal Grandfather No Known Problems Maternal Grandmother Depression Mother No Known Problems Paternal Grandfather No Known Problems Paternal Grandmother Relation Name Status Comments Brother Alive Father Alive Maternal Grandfather Maternal Grandmother Alive Mother Alive Paternal Grandfather Alive Paternal Grandmother Alive Social History Tobacco Use Types Packs/Day Years Used Date Smoking Tobacco: Never Smokeless Tobacco: Never Tobacco Cessation:Counseling Given: Not Answered Alcohol Use Standard Drinks/Week Comments No 0 (1 standard drink = 0.6 oz pur e alcohol) Sexually Active Control Partners Comments Not Currently Sex and Gender Information Value Date Recorded Sex Assigned at Not on file Legal Sex Male 7:30 PM CDT Gender Identity Not on file Sexual Orientation Not on file Last Filed Vital Signs Vital Sign Reading Time Taken Comments Blood Pressure 134/74 03/25/2023 1:03 PM CDT Pulse 66 03/25/2023 1:03 PM CDT Temperature 36.4 C (97.6 F) 03/25/2023 1:03 PM CDT Respiratory Rate 15 03/25/2023 1:03 PM CDT Oxygen Saturation 98% 03/25/2023 1:03 PM CDT Inhaled Oxygen Concentration - - Weight 72.6 kg (160 lb) 10/24/2016 10:34 AM CARPENTER REPAIRER Height 175.3 cm (5' 9) 10/24/2016 10:34 AM CARPENTER REPAIRER Body Mass Index 23.63 10/24/2016 10:34 AM CARPENTER REPAIRER Plan of Treatment Health Maintenance Due Date Last Done Comments Hepatitis C Virus (HCV) Screening 1985 TdaP Immunization 1985 Hepatitis B Immunization (1 of 3 - 19+ 3-dose series) 2004 Pneumococcal Immunization Combined (1 of 2 - PCV) 2004 Influenza Immunization (#1) 05/02/202407/02, 07/11/2021, 07/09/2016, Additional history exists SARS-COV-2 Immunization ( season) 2024 07/12/2022, 07/11/2021, 12/06/2020 Respiratory Syncytial Virus (RSV) Immunization (Adult) (1 - 1-dose 75+ series) 2060 Meningococcal Immunization (ACWY) Aged Out No longer eligible based on patient's age to complete this topic Rotavirus Immunization Aged Out No lo nger eligible based on patient's age to complete this topic Insurance [facility] MEDICAID [place] Care Teams Dock Operator Relationship Specialty Start Date End Date Monica Marshall MD [address] [place] [address] PCP - General Family Medicine 05/27/16
--- OUTSIDE RECORDS SUMMARY | 2025-01-31 13:48 | XMS_ITS | Clinical Summary ---
Author Organization [facility] Healthcare Address [address] [place] [address] Care Team Providers Care Auto Service Instructor Name Role Phone Monica Marshall MD Primary Care Provider [phone] Monica Marshall MD Unavailable [phone] Tip Giraldo MD Unavailable [phone] Francisco Sanchez MD Unavailable [phone] Allergies Active Allergy Reactions Criticality Noted Date [...] NOS Asthma 01/15/2014 Overview (12/06/2016): ASTHMA NOS Encounters Date Type Department Care Team Description 01/11/2025 Documentation [facility] Neuro Sleep [address] [place] [address] Bobbi Salgado RN [facility] patient assistance 01/10/2025 Telephone [facility] Neuro Sleep [address] [place] [phone] Bobbi Salgado RN 01/07/2025 Telephone [facility] Neuro Sleep [address] [place] [phone] Bobbi Salgado RN 01/07/2025 Telephone [facility] General Neurology [address] [place] [address] Brennan Mckenna MD Modafinil PA 01/06/2025 4:30 PM CDT Office Visit [facility] Neuro Sleep [address] [place] [address] Brennan Mckenna MD Excessive daytime sleepiness (Primary Dx); AQUILES (obstructive sleep apnea); Narcolepsy without cataplexy(347.00); Heart palpitations from Last 3 Months Medical History Medical History Date Comments Asthma Asthma PONV (postoperative nausea and vomiting) Family History Medical History Relation Name Comments Other Brother 2 Alive and well; Depression Father 2 Depression; Hypertension Father 2 Hypertension; Other Father 2 Alive and well; Sleep apnea Father 2 Obstructive sle ep apnea - (Added by TW Conv) Other Mother 2 Alive and well; Relation Name Status Comments Brother 1 Alive Brother 2 Father 1 Alive Father 2 Mother 1 Alive Mother 2 Social History Tobacco Use Types Packs/Day Years [...] Orientation Straight 01/18/2020 6: 31 PM CDT Obstetrics History Last Filed Vital Signs Vital Sign Reading [...] 01/06/2025 4:28 PM CDT Plan of Treatment Health Maintenance Due Date Last Done Comments Depression Screening 1985 Hepatitis C Screening 1985 DTaP/Tdap/Td Vaccine (1 - Tdap) 1996 Varicella Vaccines (1 of 2 - 13+ 2-dose series) 1998 Hepatitis B Screening 11/08/2003 Regular Well Visit/Exam 18-64 11/08/2003 Pneumococcal vaccine <65 (1 of 2 - PCV) 2004 Influenza Vaccine (Season Ended) 2025 07/09/2016, 10/04/2014, 09/15/2014 HPV Vaccines Aged Out No longer eligi ble based on patient's age to complete this topic Insurance [facility] MEDICARE ADVANTAGE Advance Directives For more information, please contact: [phone] * Full Code (Latest Code Status on File) Date Activated Date Inactivated Comments 04/26/2022 10:45 AM 04/26/2022 6:34 PM * Full Code Date Activated Date Inactivated Comments 04/26/2022 1:37 AM 04/26/2022 10:45 AM Care Teams Auto Service Instructor Relationship Specialty Start Date End Date Monica Marshall MD PCP - General 10/23/17 Monica Marshall MD 10/23/17 Tip Giraldo MD [address] [place] [address] 05/28/17 Francisco Sanchez MD [address] [place] [address] Consulting Physician Gastroenterology 04/26/22
--- NOTE | 2025-02-22 11:55 | WPDHOLTEREM ---
Holter/Event Monitor Holter/Event Monitor Date of procedure: 01/31/25 Holter/Event Procedure: 3-7 Day Holter Monitor Indications: Palpitations Conclusion: 1. 7 days holter monitor on 01/31/25. 2. Underlying rhythm is sinus rhythm. HR range 43-136 bpm; average HR 75 bpm. HR at 43 bpm was on 02/01/25 at 8:58 am. 3. There are rare premature supraventricular complexes. No supraventricular tachycardia. 4. There are rare premature ventricular complexes, rare ventricular couplets, longest ventricular bigeminy was 11 seconds. No ventricular tachycardia. 5. No significant pauses greater than 3 seconds. 6. No symptoms available for correlation.
== END 2025-01-31 13:32 | disposition home or self-care (01) ==
LOC: ANHCARD 13:34
PROVIDERS: PCP Family Medicine; Visit Provider Student in an Organized Health Care Education/Training Program
DX: I49.1 Atrial premature depolarization (principal); I49.3 Ventricular premature depolarization; R00.2 Palpitations
CPT/HCPCS: 93242